=== PATIENT | female | born 2000 | race Caucasian/White ===

== ENCOUNTER 2021-09-23 22:14 | Emergency (ER) | payer OTHER, MEDICAID, SELFPAY ==
[2021-09-23 22:14] VITALS: BP 127/94; PULSE 85; RESP 15; TEMP 36.6; O2SAT 99; BMI 21.9
--- NOTE | 2021-09-23 23:05 | EDS_ITS ---
HPI History of Present Illness Chief Complaint: Dizziness Detail of Chief Complaint: This when she awoke and got out of bed this morning. Informant: patient Onset/Context/Timing Onset: Today Context: Sudden Onset Timing: Intermittent Quality: Movement Location: This morning in bed and when she looks to the right Current Severity: Gone Maximum Severity: Moderate Worsened by: Change in position Relieved by: Remaining still Associated Symptoms Associated Symptoms: Mild nausea Narrative Narrative: Patient is a healthy 21-year-old female who presents with dizziness that occurred this morning when she got out of bed. She has also had dizziness when she looks to the right. She defines dizziness of a wobbling motion like sensation. She also complained of mild lightheadedness. She denied headache. She denied double vision or blurred vision. She had ringing or ears or decreased hearing. No trouble speech or swallowing. She denied cardiac or respiratory symptoms. She denied vomiting or diarrhea. She denied dysuria, frequency, urgency or hematuria. She denied rash. She denies myalgias or arthralgias. Prior similar symptoms: No Recent Illness/Hospitalization: No PFSH PFSH Medical History no medical history no medical history Home Medications NK 09/23/21 [History Last Taken Unknown] Allergy/AdvReac Type Severity Reaction Status Date / Time No Known Allergies Allergy Verified 09/23/21 22:18 Surgical History no surgical history no surgical history Social History (Updated 09/23/21 @ 23:[address] Stephon Dias MD) household members: significant other and children Smoking Status: Never smoker alcohol intake: never substance use type: does not use ROS ROS ED Constitutional Constitutional ED: Denies chills, fever(s), subjective or sweats Eyes Eyes: Denies blurry vision, change in vision or diplopia ENT ENT ED: Denies ear pain, rhinorrhea or sore throat Cardiovascular Cardiovascular: Denies chest pain or palpitations Respiratory/Chest Respiratory/Chest: Denies cough, dyspnea or dyspnea on exertion Gastrointestinal Gastrointestinal: Reports nausea; Denies abdominal pain or vomiting Genitourinary Genitourinary ED: Denies dysuria, hematuria or urinary frequency Musculoskeletal Musculoskeletal: Denies arthralgias, myalgias or neck pain Neurologic Neurologic: Denies headache(s), paresthesias or weakness Endocrine Endocrinology: Denies polydipsia, polyphagia or polyuria Hematologic/Lymphatic Hematologic/Lymphatic: Denies anemia or easy bleeding EXAM Physical Exam Const Vital Signs: 09/23/21 22:14 09/23/21 22:30 Temperature 97.9 F Temperature Source Temporal Pulse Rate 85 Respiratory Rate 15 Respiratory Pattern Normal Blood Pressure 127/94 H Blood Pressure Mean 105 Pulse Ox 99 Oxygen Delivery Method Room Air Positive well nourished and well developed General Appearance ED: well developed and NAD; Negative for cyanotic, diaphoretic or pallor HEENT Reports TM's clear and moist mucous membranes HEENT Narrative: Nares patent. Uvula midline. There is no erythema or exudate. Negative for trauma or tenderness Tympanic Membrane ED: Yes TM's clear Eyes PERRL and EOMs intact bilaterally General Eye ED: Negative for pale conjunctiva or scleral icterus Neck no lymphadenopathy, supple and no JVD Chest Wall inspection of chest normal and palpation of chest normal Resp normal respiratory effort and clear to auscultation bilaterally Cardio regular rate, regular rhythm, S1 normal heart sound, S2 normal heart sound and n o murmurs GI normal to inspection, nondistended, normoactive bowel sounds and non-tender Palpation: soft Back/Spine no CVA tenderness Extremity normal to inspection General Extremety ED: Negative for edema or tenderness General Extremity: Negative for edema Neuro oriented x3, CN's II-XII intact bilaterally and no sensory deficits noted Neuro Narrative: There is no dysmetria. There is no ataxia. The eye askew test and the hint test were negative. Lucero-Hallpike maneuver caused dizziness with no obvious nystagmus noted to the left. She had dizziness with mild nystagmus noted when she was turned to the right. There is no clonus or Babinski sign noted. DTRs are 3+ at the bicep, brachialis, tricep, patella and ankle. Sensorium / Orientation: alert Motor Exam: strength 5/5 throughout Psych mental status grossly normal Skin no rashes or lesions noted, no wounds and skin turgor normal General Skin Exam: elasticity normal; Negative for jaundice or pallor Lesions: lesion noted MDM MDM MDM Narrative Medical decision making narrative: SPECT patient has paroxysmal benign positional vertigo. Marcos maneuver was performed. This was not performed immediately. When I did perform the Marcos maneuver she had no symptoms. She is presently symptom-free. Discharge Plan Triage Chief Complaint: Dizziness ED Provider: Stephon Dias Dx/Rx/DC Orders Clinical Impression: Benign paroxysmal positional vertigo Instructions: ED BPV Vertigo Prescriptions: No Action NK RF: 0 Primary Care Provider: Care Physician,No Primary Referrals: Care Physician,No Primary [Primary Care Provider] - Doctor,Your [STAFF PHYSICIAN] - As Needed Disposition Disposition: Home, Self Care
== END 2021-09-23 23:14 | disposition home or self-care (01) ==
PROVIDERS: Emergency Provider Emergency Medicine; Visit Provider Emergency Medicine
DX: H81.10 Benign paroxysmal vertigo, unspecified ear (principal)
CPT/HCPCS: 99282

== ENCOUNTER 2024-03-04 02:37 | Inpatient (IN) | payer OTHER, SELFPAY ==
[2024-03-04] VITALS (23 sets, daily range): BP systolic 105–134; BP diastolic 61–83; PULSE 71–141; RESP 14–18; TEMP 36.2–37; O2SAT 86–99; BMI 25.9
[2024-03-04] MEDS: Ondansetron 4 MG/2 ML Vial IV (02:44)
[2024-03-04] MEDS: Lactated Ringers 1,000 ML 999 ML IV (02:46)
[2024-03-04] MEDS: Oxytocin 10 UNITS/ML Vial IM (03:12)
--- NOTE | 2024-03-04 03:17 | PCM.HP.OB ---
HPI - General General Date of Admission: 03/04/24 HPI Narrative FANY HAWK, is a 23 F @ 39.5 weeks who presents c/o ctx, found to be 6cm on arrival. pt denies SROM- i arrived shortly after patient arrival on unit, pt quickly progressed to fully dilated. PFSH PFSH Home Medications ?Medication ?Instructions ?Recorded ?Last Taken ?Type NK 09/23/21 Unknown History Allergy/AdvReac Type Severity Reaction Status Date / Time No Known Allergies Allergy Verified 03/04/24 02:31 Social History (Updated 09/23/21 @ 23:[address] Stephon Dias MD) household members: significant other and children Smoking Status: Never smoker alcohol intake: never substance use type: does not use NST FHR Rate Baby A Baseline: 145 Variability:: Moderate Accelerations:: 15 x 15 Decelerations:: Variable NST Reactive:: Yes Uterine Activity:: q1-2 min Vital Signs Vital Signs Vital Signs: 03/04/24 03:04 03/04/24 03:04 03/04/24 03:06 Pulse Rate 88 114 H Blood Pressure BP Systolic BP Diastolic Pulse Ox 98 03/04/24 03:06 03/04/24 03:09 03/04/24 03:09 Pulse Rate 141 H Blood Pressure BP Systolic BP Diastolic Pulse Ox 91 86 03/04/24 03:16 03/04/24 03:16 03/04/24 03:16 Pulse Rate 89 Blood Pressure 131/61 H BP Systolic 131 BP Diastolic 61 Pulse Ox 88 Weight Weight: 79.651 kg Body Mass Index (BMI) 25.9 Labs Labs Labs: Antibody Screen Pending Hct Pending Hgb Pending Syphilis Total Ab Pending Assessment & Plan (1) Active labor at term: (2) 39 weeks gestation of : (3) SROM (spontaneous rupture of membranes): PLAN: Plan Admit to L&D Mont[place] FHR/TOCO Monitor VS Anticipate
--- NOTE | 2024-03-04 03:22 | EX.PCM.OBVAG ---
Vaginal Delivery Maternal Presentation Maternal Presentation: Active Labor and Spontaneous Rupture of Membranes Maternal Presentation: pt presented to L&D at 6cm, denied SROM but no membranes were palpable. upon my arrival shortly after patient was on unit patient progressed to 9.5cm and was grossly ruptured, quickly progressed to 10cm. Vaginal Delivery Information Procedure Performed: Spontaneous Vaginal Delivery Surgeon/Practitioner: Angie Ansari Date of Procedure: 03/04/24 Pre-Procedure Diagnosis: active labor at term, SROM, 39 weeks gestation Post-Procedure Diagnosis: same, live female , preciptious delivery Type of anesthesia: None Estimated Blood Loss: 100 Time of Delivery: 03:09 Findings Description of procedure: Patient progressed to fully dilated. With good maternal pushing efforts she delivered the 's head. Tight nuchal cord x 2 was noted at this time it was doubly clamped and cut. At this time then the anterior shoulder delivered spontaneously followed by the posterior shoulder and the rest the infant's body. The infant was placed on the mother's chest where the nursery team attended to the . At this time IM Pitocin was given. Fundal massage was given and the placenta was delivered intact and without complication. Fundus remained firm bleeding was minimal. Vaginal inspection and perineal inspection were performed no lacerations noted. Presentation: Vertex Amniotic Membrane Rupture Type: Spontaneous Amniotic Fluid Description: Clear Placental Delivery Description: Expressed Placenta Disposition: [facility] Specimen collected: No Cord Vessel Description: 3 Vessels Cord Entanglement: Around neck x 2, tight Nuchal Cord Compression: Without compression A Gender: Female (1 minute): 7 (5 minute): 9 Delayed Cord Clamping: No Home Supervisor radio sportscaster: No Post Vaginal Deli Medications given after delivery: IM Pitocin Episiotomy Description: None Laceration: None Complication Complications: No
[2024-03-04 03:39] LABS: Syphilis Antibodies Non-reactive
[2024-03-04 03:45] LABS: Absolute Lymphocyte Count 2.88 X10^3/uL (0.83-4.51); Absolute Neutrophil Count 12.3 X10^3/uL (2.0-7.7); Basophil# 0.05 X10^3/uL; Basophil% 0.3 % (0-1); Eosinophil# 0.05 X10^3/uL; Eosinophils% 0.3 % (0-5); Hematocrit 38.9 % (37-47); Hemoglobin 12.1 g/dL (12.0-15.0); Lymphocyte # 2.88 X10^3/ul (0.83-4.51); Lymphocyte % 17.4 % (19-41); Mean Corp Hgb Conc 31.1 g/dL (32-36); Mean Corpuscular Hgb 24.7 pg (27.0-32.0); Mean Corpuscular Volume 79.6 fL (81-99); Mean Platelet Vol. 10.2 fl (6.2-12.0); Monocyte# 1.17 X10^3/uL; Monocyte% 7.1 % (0-10); NRBC Flagged by Analyzer 0 % (0-5); Neutrophil # 12.29 X10^3/uL (2.7-7.7); POSITIVE MORPHOLOGY YES; Red Blood Count 4.89 M/mm3 (4.2-5.4); White Blood Count 16.6 K/mm3 (4.4-11.0)
[2024-03-04 03:47] LABS: Differential Indicated SCAN CRITERIA MET; Platelet Count 186 K/mm3 (150-450)
[2024-03-04 04:30] LABS: Anisocytosis 2+; Differential Comment SCANNED; Platelet Estimate ADEQUATE (ADEQ); Polychromasia 1+
[2024-03-04 04:31] LABS: Macrocytosis 2+; Ovalocyte 1+; Rouleaux 2+
[2024-03-05 00:50] VITALS: BP 122/81; PULSE 74; RESP 16; TEMP 36.6; O2SAT 99
[2024-03-05 00:58] VITALS: BP 122/81; PULSE 82; O2SAT 98
--- NOTE | 2024-03-05 08:21 | PCM.PN.OB ---
Subjective Subjective Doing well. Ambulating and voiding without difficulty. Mild lochia. Breast feeding. Objective Data Objective Data Vital Signs: Vital Signs Temp Pulse Resp BP Pulse Ox O2 Del Method 97.9 F 82 16 122/81 H 98 Room Air 03/05/24 00:50 03/05/24 00:58 03/05/24 00:50 03/05/24 00:58 03/05/24 00:58 03/05/24 00:50 Oxygen Delivery Method Room Air Weight: 79.651 kg Body Mass Index (BMI) 25.9 Intake & Output: Intake and Output for Last 24 Hours 03/03/24 03/04/24 03/05/24 23:59 23:59 23:59 Intake Total 269.85 / 269.85 Output Total 500 / 500 Balance -230.15 / -230.15 Lab / Micro Data 03/04/24 02:40 Physical Exam Const alert and no apparent distress Narrative: Fundus firm, below umbilicus. Assessment & Plan (1) Active labor at term: (2) (spontaneous vaginal delivery):
--- NOTE | 2024-03-05 08:28 | PCM.DC.SUM ---
Providers Date of Admission: 03/04/24 Date of Discharge: 03/05/24 Primary Care Physician: Tonia Primary Care Phys Reason For Visit: VAGINAL DELIVERY Diagnosis Discharge Diagnosis (1) Active labor at term: Status: Acute (2) (spontaneous vaginal delivery): Status: Acute Code(s): O80 - Encounter for full-term uncomplicated delivery Medications at Discharge Home Medications NK 09/23/21 Hospital Course Operations None Procedures None Summary of Care Provided Minutes Spent on Discharge: 21 Hospital Course: Presented in active labor progressed quickly to complete. . Breast feeding on discharge Physical Exam Const alert and no apparent distress Narrative: Fundus firm, below umbilicus. Weight / BMI Weight Weight: 79.651 kg Body Mass Index (BMI) 25.9 ABG / Lab / Microbiology Data 03/04/24 02:40 D/C Instructions May resume sexual activity in: 6 weeks Please Follow Up With: Arielle Castro MD When: Follow up with our office in 1-2 and 6 weeks or as needed. [phone] Meaningful Use Info Meaningful Use Meaningful Use Diagnoses (Choose all that apply): None applicable Ischemic Stroke Statin Dosing Therapy Reference: STATIN DOSE THERAPY REFERENCE: * Patients > 75 years receive moderate or high dose statin therapy. * Patients 75 years or YOUNGER should receive HIGH intensity statin dose unless contraindicated. You will be required to document reason for non-treatment if statin daily dose does not meet guidelines. HIGH DOSE STATIN THERAPY DAILY Atorvastatin > than or = to 40 mg Rosuvastatin > than or = to 20 mg Amlodipine + Atorvastatin > than or = to 2.5/40 mg Ezetimibe + Simvastatin 10/80 mg Simvastatin 80mg Discharge Plan Admission Admit Date/Time: 03/04/24 02:37 Attending Provider: Angie Ansari Primary Care Provider: Care Physician,Tonia Primary Discharge Orders/Prescriptions Prescriptions: No Action NK Referrals / Follow Up: Care Physician,No Primary [Primary Care Provider] -
[2024-03-05 09:02] VITALS: BP 108/65; PULSE 74
[2024-03-05 09:14] VITALS: BP 108/65; PULSE 74; RESP 16; TEMP 36.3
--- NOTE | 2024-03-10 09:39 | CASEMGMT ---
Social Work Assessment Labor and Delivery Unit Patient Address: [address] [place] [address]. [place] [id number] Phone number: [phone] Date of Referral: 03/04/24 Time of Referral:? 454 Referred By: Dr. Edda Kan Date of Intervention: ??03/05/24 Time of Intervention:? 1240 Reason for Referral:? depression Sw completed chart review and acknowledges social work consult due to maternal mental health history of depression. Sw presented to bedside and introduced self to mother of baby (MOB- [place]). Sw started assessment and then fdc through father of baby (FOB- [place]) presented to bedside and participated along with MOB. History obtained from: medical records, MOB and FOB. ? Household composition: MOB states that she, TIBURCIO, their two older children ([place]- 4 and Marvin-2) currently reside with maternal grandparents. MOB states they lost their home earlier this year when TIBURCIO had a change in employment. MOB states that their housing is safe and secure and they are not in jeopardy of losing it. [place] baby to be added to residence when ready for discharge. Patient's parent/guardian status:? ?MOB states that she and TIBURCIO have been together for 6 years after knowing each other most of their lives. MOB states that TIBURCIO was her brother's best friend. No concerns with domestic violence or intimate partner violence. baby is third baby for parents together. Medical History: ?ELENI is 24 year old female who is 3, para 2- now 3 following labor and delivery of . ELENI received routine care during with [facility]. ELENI presented to labor and delivery in active labor, was found to be 6 centimeters dilated and then progressed quickly to complete. ELENI delivered baby via vaginal delivery at 39 weeks gestation on 03/04/24. Baby girl, named Jose M, was born weighing 8lb 3oz with apgars of 7 and 9 at one and five minutes of life, respectfully. ELENI states that she is breast feeding and it is going well. Baby will be followed by Dr. Park for pediatrics. Educational Status:? Both parents graduated from high school. ELENI obtained her associates degree. No issues with reading, learning or comprehension. Financial Status: TIBURCIO is gainfully employed outside of the home. He just started his own construction/ [employer]. ELENI does not work, she is a stay at home mom. Supplies: Parents report to having all necessary baby supplies, including: car seat, safe sleep space, clothes, diapers and wipes. Childcare/Caregiver(s):? ELENI states that she will be the primary caregiver to baby along with TIBURCIO when he is not working, along with maternal grandparents whom family currently resides with. Transportation:?Both parents have their drivers license and reliable means of transportation, no barriers. Programs/Agencies Involved: ???ELENI states that she was in the process of applying for insurance through [email or web address] and [email or web address], but didn't submit paycheck stubs. Irina informed parents that they will be eligible due to their income level and now having a third dependent. Irina explained the process of applying, and ELENI stated that she would finish the process because her two younger children are not covered by medical insurance. Children Services/Legal Issues:??No history of children services involvement, no issues or concerns warranting referral to be made at this time. ? Behavioral Health Issues: ??Mental Health History:??TIBURCIO denies mental health history. ELENI states that she did not have a history of anxiety or depression, but did experience with her first daughter. MOB states that she was extremely anxious during that period. MOB states after her second daughter was born she did not struggle with her mental health. ELENI states that at this time she feels good and is not worried about struggling with any mental health concerns going into this period. ? Substance Use History:??Parents deny substance use prior to and during . Family History:??Parents deny family history of substance use/ addiction or significant mental health diagnoses. ??? Drug Screens: No drug screens observed in chart review. Family/Social Stressors:? ELENI states that this year was a tough one for their family. TIBURCIO lost his job, and started up his own construction/ [employer] company, but in the midst of that change they lost their home and moved in with her parents. MOB states that now that their business is up and running they are doing better financially. Support Systems: ELENI states that TIBURCIO is her biggest support along with her parents. Depression/Shaken Baby/Safe Sleeping: Irina educated parents on signs and symptoms of baby blues and mood and anxiety disorders. ELENI states that if she were to struggle FOB would recognize that and would know how to help and support her. MOB states that now that they are living with her parents she will have extra help with the older two girls as well. Sw educated parents on shaken baby prevention and ABCs of safe sleep. Parents express understanding. ASSESSMENT:? MOB and baby admitted following labor and delivery of . MOB welcoming of sw while she was observed sitting on couch and holding baby in loving and tender manner. MOB participated openly in completion of assessment. MOB made good eye contact and was engaging. MOB open about issues she is having regarding insurance. Importance of having insurance for her children expressed, MOB expressed understanding. MOB and FOB appreciative of sw involvement. PLAN:?? No other services requested or indicated. MOB and baby to be discharged when medically ready. Parents were provided literature regarding: signs and symptoms of baby blues and mood and anxiety disorders, Help Me Grow, shaken baby prevention, ABCs of safe sleep and a list of [facility] resources that are available for them should any needs present themselves. Oma Lovelace, RELIGION PROFESSOR, DIET AIDE
== END 2024-03-05 11:00 | disposition home or self-care (01) | DRG 807 ==
LOC: WPOUT 02:42 → WP 02:42
PROVIDERS: Admitting Provider Obstetrics & Gynecology; Referring Provider Obstetrics & Gynecology; Visit Provider Obstetrics & Gynecology
DX: O62.3 Precipitate labor (principal); Z37.0 Single live birth; O69.81X0 Labor and delivery complicated by cord around neck, without compression, not applicable or unspecified; Z3A.39 39 weeks gestation of pregnancy
CPT/HCPCS: 59025; 59050; 85025; 86780; 86850; 86900; 86901; 99221; J7120; G0378; J2405